=== PATIENT | male | born 1990 | race Two or more races ===

== ENCOUNTER 2020-09-08 05:52 | Day surgery (SDC) | payer OTHER | END 2020-09-08 10:45 | disposition home or self-care (01) | LOC: AMB-ENDOS 05:52 | PROVIDERS: ATTEND Surgery | DX: D13.1 Benign neoplasm of stomach (principal); K44.9 Diaphragmatic hernia without obstruction or gangrene; Z20.822 Contact with and (suspected) exposure to COVID-19 ==